=== PATIENT | female | born 1970 | race Two or more races ===

== ENCOUNTER 2024-07-28 19:16 | Emergency (ER) | payer OTHER ==
[~2024-07-28] VITALS: Ht 154.9 cm; Wt 61.2 kg
[2024-07-28] MEDS ORDERED: GUAIFENESIN/DEXTROMETHORPHAN 100MG/10ML BLIST.PACK PO ONE ×2 (21:15→21:19)
[2024-07-28] MEDS ORDERED: ACETAMINOPHEN 500 MG GEL..CAP PO ONE ×2 (21:15→21:19)
[2024-07-28] MEDS ORDERED: CETIRIZINE HCL 5 MG/5 ML ML PO ONE (21:15)
[2024-07-28] MEDS ORDERED: CETIRIZINE HCL 5MG/5ML BLIST.PACK PO ONE (21:19)
[2024-07-28 21:52] LABS: HEMATOCRIT 35.4 % (36.0-45.00); HEMOGLOBIN 12.1 g/dL (12.0-15.00); MEAN CELL VOLUME 86.6 fL (80.00-100.00); MEAN CORPUSCULAR HEMOGLOBIN 29.5 pg (27.00-32.0); PLATELET COUNT 206 K/uL (150-450); RED BLOOD COUNT 4.09 M/uL (4.00-6.00)
[2024-07-28] MEDS ORDERED: OSELTAMIVIR PHOSPHATE 75 MG CAPSULE PO ONE (22:30)
[2024-07-28] MEDS ORDERED: TUSSIN DM LIQU118 ML PO (22:32)
[2024-07-28] MEDS ORDERED: BENZONATATE200 M1 PO (22:32)
[2024-07-28] MEDS ORDERED: OSEL75CA PO (22:32)
[2024-07-28] MEDS ORDERED: SALINE NASAL SP44 ML NASAL (22:38)
[2024-07-28] MEDS ORDERED: ZYRTEC10 MG PO (22:38)
== END 2024-07-28 22:40 | disposition home or self-care (01) ==
LOC: ER 19:19
PROVIDERS: Emergency Medicine
DX: J10.1 Influenza due to other identified influenza virus with other respiratory manifestations (principal); Z20.822 Contact with and (suspected) exposure to COVID-19